=== PATIENT | male | born 1965 | race African-American/Black ===

== ENCOUNTER 2018-07-20 12:37 | Emergency (ER) | payer BC ==
[~2018-07-20] VITALS: Ht 177.8 cm; Wt 102.1 kg
[2018-07-20] MEDS ORDERED: CYCLOBENZAPRINE HCL 10 MG TAB PO ONE (13:00)
[2018-07-20] MEDS ORDERED: KETOROLAC TROMETHAMINE 60 MG/2 ML VIAL IM ONE (13:00)
[2018-07-20] MEDS ORDERED: HYDROCODONE/APAP 10MG-325MG TAB PO ONE (13:00)
[2018-07-20] MEDS ORDERED: ONDANSETRON HCL 4 MG ORAL DISINTEGRATING TAB ONE (13:04)
[2018-07-20] MEDS ORDERED: DEXAMETHASONE SOD PHOS 10 MG/1 ML VIAL INJ ONE (13:30)
[2018-07-20] MEDS ORDERED: ONDANSETRON HCL 4 MG ORAL DISINTEGRATING TAB PO ONE (13:30)
[2018-07-20 13:56] VITALS: BP 134/86
== END 2018-07-20 13:58 | disposition home or self-care (01) ==
LOC: ER 12:37
DX: M54.6 Pain in thoracic spine (principal); M54.5 Low back pain; S23.3XXA Sprain of ligaments of thoracic spine, initial encounter; S33.5XXA Sprain of ligaments of lumbar spine, initial encounter; X50.0XXA Overexertion from strenuous movement or load, initial encounter; Y92.008 Other place in unspecified non-institutional (private) residence as the place of occurrence of the external cause; E03.9 Hypothyroidism, unspecified
CPT/HCPCS: 99283; J1885

== ENCOUNTER → 2018-08-13 | Outpatient (CLI) | payer BC ==
[~2018-08-13] MED LIST: LEVOTHYROXINE PO; NAPROXEN250 MG PO; NORCO 7.5-3251 EACH PO; PRAVASTATIN SOD10 MG PO; VITAMIN D32000 UNI1 PO
--- NOTE | 2018-08-13 15:29 | Diagnostic Imaging Report ---
History: Low back pain, left leg numbness Comparison studies: None Technique: Sagittal, coronal and axial T2 , sagittal T1 and IR, axial spin density oblique. Intravenous contrast: None Findings: Number of lumbar vertebral bodies:5 Alignment: Normal lordosis.No scoliosis. Soft tissues: No T2 hyperintense inflammatory changes. Paraspinal muscles: No signal abnormalities. No atrophy. Lower thoracic cord:Normal in signal and morphology. The tip of the conus is at L1. Cauda equina: No masses. No arachnoiditis. Vertebrae: Normal in height and signal intensity. No compression fractures, infection or neoplasm. Degenerative changes: L1-L2: No abnormalities. L2-L3: No abnormalities. L3-L4: No abnormalities. L4-L5: Disc degeneration with loss of T2 signal. Diffuse disc bulge with superimposed small central disc protrusion and mild facet hypertrophy and ligamentum flavum thickening results in mild canal stenosis and mild right foraminal narrowing. L5-S1: Disc degeneration with loss of T2 signal. Diffuse disc bulge with superimposed central and left subarticular inferiorly migrated disc extrusion and mild facet hypertrophy results in mild canal stenosis and obliteration of the left subarticular recesses without significant foraminal narrowing. Additional findings: None IMPRESSION: Left central and subarticular inferiorly migrated disc extrusion at L5-S1 obliterates the left subarticular recesses with impingement on the descending S1 nerve root. Other degenerative changes as described above. Signed by: DR Martín Garcia M.D. on 08/13/2018 3:25 PM
== END ==
LOC: MRI 09:01
PROVIDERS: ATTEND Specialist
DX: S39.012A Strain of muscle, fascia and tendon of lower back, initial encounter (principal)
CPT/HCPCS: 72148

== ENCOUNTER 2018-09-09 05:50 | Observation (INO) | payer BC ==
--- NOTE | 2018-09-05 15:23 | Diagnostic Imaging Report ---
EXAM: XR CHEST 2 VIEWS DATE: 09/05/2018 2:49 PM INDICATION: Preoperative. Low back pain. COMPARISON: None FINDINGS: Lines and Tubes: None Heart and Mediastinum: No acute cardiomediastinal findings. Lungs and Pleura: No significant pleural effusion, pneumothorax, or focal consolidation. Bones and Soft Tissues: No acute findings. IMPRESSION: 1. No acute cardiopulmonary findings. Signed by: Dr. Shahbaz Espinal MD on 09/05/2018 3:20 PM
[2018-09-08 10:28] LABS: BASOPHILS % 0.6 % (0.0-1.0); EOSINOPHILS # (AUTO) 0.1 (0.0-0.4); EOSINOPHILS % 1.5 % (0.0-6.0); HEMATOCRIT 43.7 % (38.2-49.6); HEMOGLOBIN 14.1 g/dL (14.0-18.0); LYMPHOCYTES # (AUTO) 1.7 (1.0-3.2); LYMPHOCYTES % 50.9 % (18.0-39.1); MEAN CORPUSCULAR HEMOGLOBIN 30.5 pg (28-32); MEAN CORPUSCULAR HGB CONC 32.3 g/dL (31-35); MEAN CORPUSCULAR VOLUME 94.6 fL (81-99); MONOCYTES # (AUTO) 0.4 (0.2-0.8); MONOCYTES % 12.7 % (4.4-11.3); NEUTROPHILS # (AUTO) 1.1 (2.1-6.9); PLATELET COUNT 197 x10e3/uL (140-360); RED BLOOD COUNT 4.62 x10e6/uL (4.3-5.7); RED CELL DISTRIBUTION WIDTH 12.6 % (11.7-14.4)
[2018-09-08 10:41] LABS: INR 0.95; PROTHROMBIN TIME 13.6 seconds (11.9-14.5)
[2018-09-08 10:42] LABS: PARTIAL THROMBOPLASTIN TIME 26.6 seconds (23.8-35.5)
[2018-09-08 10:49] LABS: ANION GAP 15.1 mmol/L (8-16); BLOOD UREA NITROGEN 16 mg/dL (7-26); BUN/CREATININE RATIO 13 (6-25); CALCIUM 9.9 mg/dL (8.4-10.2); CARBON DIOXIDE 22 mmol/L (22-29); CHLORIDE 106 mmol/L (98-107); CREATININE, SERUM 1.23 mg/dL (0.72-1.25); EST GLOMERULAR FILTRATION RATE > 60 ML/MIN (60-); GLUCOSE 94 mg/dL (74-118); POTASSIUM 4.1 mmol/L (3.5-5.1); SODIUM 139 mmol/L (136-145)
[~2018-09-09] VITALS: Ht 180.3 cm; Wt 103.6 kg
--- OUTSIDE RECORDS SUMMARY | 2018-09-09 05:52 | XMS REPORT | Clinical Summary ---
Author Author [facility] Organization [facility] Address Unknown Phone Unavailable Care Team Providers Care Fitness Sales Associate Name Role Phone Alicia Melissa MD PCP Allergies Comments Active Allergy Reactions Severity Noted Date Codeine Nausea Only 07/10/2011 Medications End Date Status Medication Sig Dispensed Refills Start Date Active levothyroxine (SYNTHROID, Take 175 mcg 0 LEVOXYL) 175 mcg tablet by mouth. 6 07/16/2019 Active naproxen (NAPROSYN) 500 Take 1 tablet 60 tablet 0 MG tablet (500 mg 8 total) by mouth 2 (two) times a day with meals. 07/16/2018 Discontinued naproxen (NAPROSYN) 500 Take 1 tablet 60 tablet 0 201 MG tablet (500 mg 7 total) by mouth 2 (two) times a day with meals. Status Hospital, Clinic, or Ordered Dose Route Frequency Start End Date Other Facility Date Administered Medication Active sodium hyaluronate 30 mg IAtc once 01/21/20 (viscosup) (ORTHOVISC) 18 injection 30 mgIndications: Primary osteoarthritis of right knee Active Problems Problem Noted Date Strain of lumbar region 07/16/2018 Acute bilateral low back pain without sciatica 07/16/2018 Plantar fasciitis 05/10/2017 Pain of right heel 05/10/2017 Chronic pain of right knee 05/10/2017 Chronic right shoulder pain 05/10/2017 DJD (degenerative joint disease), ankle and foot 05/10/2017 Primary osteoarthritis of right knee 05/10/2017 Calcific tendonitis of right shoulder 05/10/2017 Encounters Care Team Description Date Type Specialty Ac Dangelo MD Primary osteoarthritis of right knee (Primary Dx) 08/01/2018 Office Visit Orthopedic Surgery Ac Dangelo MD Primary osteoarthritis of right knee (Primary Dx) 07/25/2018 Office Visit Orthopedic Surgery Ac Dangelo MD Primary osteoarthritis of right knee (Primary Dx) 07/17/2018 Office Visit Orthopedic Surgery Colby Singh MD Acute bilateral low back pain without sciatica (Primary Dx); Strain of lumbar region, initial encounter 07/16/2018 Office Visit Orthopedic Surgery Zhao Gutierrez MD Leukopenia, unspecified type (Primary Dx); Other neutropenia 02/19/2018 Lab Lab Ac Dangelo MD Primary osteoarthritis of right knee (Primary Dx) 01/08/2018 Office Visit Orthopedic Surgery Ac Dangelo MD Primary osteoarthritis of right knee (Primary Dx) 01/01/2018 Office Visit Orthopedic Surgery Ac Dangelo MD Primary osteoarthritis of right knee (Primary Dx) 12/25/2017 Office Visit Orthopedic Surgery Zhao Gutierrez MD Leukopenia, unspecified type (Primary Dx); Other neutropenia 09/20/2017 Lab Lab after 09/08/2017 Family History Medical History Relation Name Comments Cancer Father Relation Name Status Comments Father Mother Alive Social History Date Tobacco Use Types Packs/Day Years Used Never Smoker Smokeless Tobacco: Never Used Alcohol Use Drinks/Week oz/Week Comments Yes 1 Cans of 0.6 beer Sex Assigned at Date Recorded Not on file Industry Job Start Date Occupation Not on file Not on file Not on file Travel End Travel History Travel Start No recent travel history available. Last Filed Vital Signs Time Taken Vital Sign Reading - Blood Pressure - - Pulse - - Temperature - - Respiratory Rate - - Oxygen Saturation - - Inhaled Oxygen - Concentration 07/17/2018 10:44 AM CDT Weight 102 kg (225 lb) 07/17/2018 10:44 AM CDT Height 177.8 cm (5' 10") 07/17/2018 10:44 AM CDT Body Mass Index 32.28 Plan of Treatment Health Maintenance Due Date Last Done Comments MMR VACCINES (1 of - 1965 Standard series) VARICELLA VACCINES (1 of 1977 2 - 2-dose adolescent series) COLON CANCER SCREENING 2014 SHINGRIX VACCINE (1 of 2) 2014 INFLUENZA VACCINE 05/21/2018 HEPATITIS B VACCINES Aged Out No longer eligible based on patient's age to complete this topic IPV VACCINES Aged Out No longer eligible based on patient's age to complete this topic MENINGOCOCCAL VACCINE Aged Out No longer eligible based on patient's age to complete this topic Procedures Comments Procedure Name Priority Date/Time Associated Diagnosis ME ARTHROCENTESIS Routine 08/01/2018 Primary osteoarthritis of ASPIR&/INJ MAJOR JT/BURSA 3:50 PM CDT right knee W/O US ME ARTHROCENTESIS Routine 07/25/2018 Primary osteoarthritis of ASPIR&/INJ MAJOR JT/BURSA 2:10 PM CDT right knee W/O US XR KNEE 4+ VW RIGHT Routine 07/17/2018 Primary osteoarthritis of 10:39 AM CDT right knee ME ARTHROCENTESIS Routine 07/17/2018 Primary osteoarthritis of ASPIR&/INJ MAJOR JT/BURSA 10:30 AM CDT right knee W/O US HIGH RESOLUTION Routine 02/19/2018 Leukopenia, unspecified ELECTROPHORESIS PANEL 10:05 AM CDT type Other neutropenia IGAM Routine 02/19/2018 Leukopenia, unspecified 10:05 AM CDT type Other neutropenia HC COMPLETE BLD COUNT Routine 02/19/2018 Leukopenia, unspecified W/AUTO DIFF 10:05 AM CDT type Other neutropenia ME ARTHROCENTESIS Routine 01/08/2018 Primary osteoarthritis of ASPIR&/INJ MAJOR JT/BURSA 10:50 AM CDT right knee W/O US ME ARTHROCENTESIS Routine 01/01/2018 Primary osteoarthritis of ASPIR&/INJ MAJOR JT/BURSA 10:40 AM CDT right knee W/O US ME ARTHROCENTESIS Routine 12/25/2017 Primary osteoarthritis of ASPIR&/INJ MAJOR JT/BURSA 10:40 AM WEB USER EXPERIENCE STRATEGIST right knee W/O US ADENOVIRUS BY PCR Routine 09/20/2017 Leukopenia, unspecified 3:25 PM WEB USER EXPERIENCE STRATEGIST type Other neutropenia HC COMPLETE BLD COUNT Routine 09/20/2017 Leukopenia, unspecified W/AUTO DIFF 3:25 PM WEB USER EXPERIENCE STRATEGIST type Other neutropenia SUNNY-ROSALES VIRUS Routine 09/20/2017 Leukopenia, unspecified ANTIBODY TEST 3:25 PM WEB USER EXPERIENCE STRATEGIST type Other neutropenia CYTOMEGALOVIRUS AB, IGM Routine 09/20/2017 Leukopenia, unspecified 3:25 PM WEB USER EXPERIENCE STRATEGIST type Other neutropenia CYTOMEGALOVIRUS AB, IGG Routine 09/20/2017 Leukopenia, unspecified 3:25 PM WEB USER EXPERIENCE STRATEGIST type Other neutropenia after 09/08/2017 Results * Large Joint Arthrocentesis (08/01/2018 3:50 PM CDT) Narrative Performed At Ac Dangelo MD 08/04/20188:34 AM Large Joint Arthrocentesis Consent given by: patient Supporting Documentation Indications: pain Procedure Details Ultrasound guided: no Location: knee - R knee Right side: Needle size: 22 G Approach: anterolateral Right knee medications administered: 3 mL lidocaine 10 mg/mL (1 %); 2 mL sodium hyaluronate (viscosup) 30 mg/2 mL Patient tolerance: patient tolerated the procedure well with no immediate complications * Large Joint Arthrocentesis (07/25/2018 2:10 PM CDT) Narrative Performed At Ac Dangelo MD 07/30/20181:08 PM Large Joint Arthrocentesis Consent given by: patient Supporting Documentation Indications: pain Procedure Details Ultrasound guided: no Location: knee - R knee Right side: Needle size (right): 25G. Approach: anterolateral Right knee medications administered: 2 mL lidocaine 10 mg/mL (1 %); 2 mL sodium hyaluronate (viscosup) 30 mg/2 mL (3mg betamethasone acet, sod phos 3mg/ml) Patient tolerance: patient tolerated the procedure well with no immediate complications * XR Knee 4+ Vw Right (07/17/2018 10:39 AM CDT) Narrative Performed At [facility] Advanced degenerative changes bilaterally with medial joint narrowing and tsey-hy-mvia apposition with varus on the right. Performing Organization Address City/State/Zipcode Phone Number [facility] [address] [place] [address] * Large Joint Arthrocentesis (07/17/2018 10:30 AM CDT) Narrative Performed At Ac Dangelo MD 07/17/2018 12:04 PM Large Joint Arthrocentesis Consent given by: patient Supporting Documentation Indications: pain Procedure Details Ultrasound guided: no Location: knee - R knee Right side: Needle size: 22 G Approach: anterolateral Right knee medications administered: 3 mL lidocaine 10 mg/mL (1 %); 2 mL sodium hyaluronate (viscosup) 30 mg/2 mL Patient tolerance: patient tolerated the procedure well with no immediate complications * IGAM (02/19/2018 10:05 AM CDT) IgG 1,408 700 - 1,600 mg/dL [facility] DEPARTMENT OF PATHOLOGY AND GENOMIC MEDICINE IgA 361 70 - 400 mg/dL [facility] DEPARTMENT OF PATHOLOGY AND GENOMIC MEDICINE IgM 47 33 - 255 mg/dL [facility] DEPARTMENT OF PATHOLOGY AND GENOMIC MEDICINE Specimen Plasma specimen Performing Organization Address City/State/[facility] Phone Number [facility] DEPARTMENT OF [address] [place] [phone] PATHOLOGY AND GENOMIC MEDICINE * High resolution electrophoresis panel (02/19/2018 10:05 AM CDT) Protein 7.7 6.3 - 8.3 g/dL [facility] DEPARTMENT OF Comment: PATHOLOGY AND GENOMIC MEDICINE 4.6-7.0 g/dL 1 week 4.4-7.6 g/dL 7 months-1year 5.1-7.3 g/dL 1-2 years5.6-7 .5 g/dL >3 years6.0-8 .0 g/dL 18-150 6.3-8.3 g/dL SPE albumin 5.14 4.00 - 5.30 g/dL [facility] DEPARTMENT OF PATHOLOGY AND GENOMIC MEDICINE SPE alpha 1 0.12 0.10 - 0.25 g/dL [facility] DEPARTMENT OF PATHOLOGY AND GENOMIC MEDICINE SPE alpha 2 0.57 (L) 0.58 - 0.84 g/dL [facility] DEPARTMENT OF PATHOLOGY AND GENOMIC MEDICINE SPE beta 0.81 0.50 - 1.10 g/dL [facility] DEPARTMENT OF PATHOLOGY AND GENOMIC MEDICINE SPE gamma 1.08 0.60 - 1.30 g/dL [facility] DEPARTMENT OF PATHOLOGY AND GENOMIC MEDICINE SPE extended See Comment [facility] DEPARTMENT OF interpretation Comment: PATHOLOGY AND Alpha-2 globulins are GENOMIC MEDICINE decreased most likely due to decreased haptoglobin and/or alpha-2 macroglobulin. Results are similar by both conventional and high resolution electrophoresis (HRE). SPE interpretation See CommentComment: Shannan [facility] DEPARTMENT OF Sam PhD; Kenny Villafuerte MD PhD PATHOLOGY AND GENOMIC MEDICINE High resolution SEE COMMENTComment: See [facility] DEPARTMENT OF electrophoresis electrophoresis report below. PATHOLOGY AND GENOMIC MEDICINE Specimen Serum Performing Organization Address City/State/Zipcode Phone Number [facility] DEPARTMENT OF [address] [place] [address] PATHOLOGY AND GENOMIC MEDICINE * CBC with platelet and differential (02/19/2018 10:05 AM CDT) Only the most recent of 2 results within the time period is included. WBC 3.41 (L) 4.50 - 11.00 k/uL [facility] DEPARTMENT OF PATHOLOGY AND GENOMIC MEDICINE RBC 4.65 4.40 - 6.00 m/uL [facility] DEPARTMENT OF PATHOLOGY AND GENOMIC MEDICINE HGB 14.0 14.0 - 18.0 g/dL [facility] DEPARTMENT OF PATHOLOGY AND GENOMIC MEDICINE HCT 43.2 41.0 - 51.0 % [facility] DEPARTMENT OF PATHOLOGY AND GENOMIC MEDICINE MCV 92.9 82.0 - 100.0 fL [facility] DEPARTMENT OF PATHOLOGY AND GENOMIC MEDICINE MCH 30.1 27.0 - 34.0 pg [facility] DEPARTMENT OF PATHOLOGY AND GENOMIC MEDICINE MCHC 32.4 31.0 - 37.0 g/dL [facility] DEPARTMENT OF PATHOLOGY AND GENOMIC MEDICINE RDW - SD 42.8 37.0 - 55.0 fL [facility] DEPARTMENT OF PATHOLOGY AND GENOMIC MEDICINE MPV 10.2 8.8 - 13.2 fL [facility] DEPARTMENT OF PATHOLOGY AND GENOMIC MEDICINE Platelet count 194 150 - 400 k/uL [facility] DEPARTMENT OF PATHOLOGY AND GENOMIC MEDICINE Nucleated RBC 0.00 /100 WBC [facility] DEPARTMENT OF PATHOLOGY AND GENOMIC MEDICINE Neutrophils 32.6 (L) 39.0 - 69.0 % [facility] DEPARTMENT OF PATHOLOGY AND GENOMIC MEDICINE Lymphocytes 51.3 (H) 25.0 - 45.0 % [facility] DEPARTMENT OF PATHOLOGY AND GENOMIC MEDICINE Monocytes 12.9 (H) 0.0 - 10.0 % [facility] DEPARTMENT OF PATHOLOGY AND GENOMIC MEDICINE Eosinophils 2.3 0.0 - 5.0 % [facility] DEPARTMENT OF PATHOLOGY AND GENOMIC MEDICINE Basophils 0.9 0.0 - 1.0 % [facility] DEPARTMENT OF PATHOLOGY AND GENOMIC MEDICINE Immature granulocytes 0.0Comment: "Immature 0.0 - 1.0 % [facility] DEPARTMENT OF granulocytes" (promyelocytes, PATHOLOGY AND myelocytes, metamyelocytes) GENOMIC MEDICINE Specimen Blood Performing Organization Address City/State/Zipcode Phone Number [facility] DEPARTMENT OF [address] [place] [address] PATHOLOGY AND GENOMIC MEDICINE * Large Joint Arthrocentesis (01/08/2018 10:50 AM CDT) Narrative Performed At Ac Dangelo MD 01/08/2018 11:46 AM Large Joint Arthrocentesis Consent given by: patient Supporting Documentation Indications: pain Procedure Details Ultrasound guided: no Location: knee - R knee Right side: Needle size: 22 G Approach: anterolateral Right knee medications administered: 3 mL lidocaine 10 mg/mL (1 %); 2 mL sodium hyaluronate (viscosup) 30 mg/2 mL Patient tolerance: patient tolerated the procedure well with no immediate complications * Large Joint Arthrocentesis (01/01/2018 10:40 AM CDT) Narrative Performed At Ac Dangelo MD 01/02/20188:30 PM Large Joint Arthrocentesis Consent given by: patient Supporting Documentation Indications: pain Procedure Details Ultrasound guided: no Location: knee - R knee Right side: Needle size: 22 G Approach: anterolateral Right knee medications administered: 3 mL lidocaine 10 mg/mL (1 %); 2 mL sodium hyaluronate (viscosup) 30 mg/2 mL Patient tolerance: patient tolerated the procedure well with no immediate complications * Large Joint Arthrocentesis (12/25/2017 10:40 AM WEB USER EXPERIENCE STRATEGIST) Narrative Performed At Ac Dangelo MD 01/20/20184:10 PM Large Joint Arthrocentesis Consent given by: patient Supporting Documentation Indications: pain Procedure Details Ultrasound guided: no Location: knee - R knee Right side: Needle size: 22 G Approach: anterolateral Right knee medications administered: 3 mL lidocaine 10 mg/mL (1 %); 2 mL sodium hyaluronate (viscosup) 30 mg/2 mL Patient tolerance: patient tolerated the procedure well with no immediate complications * Sunny-Rosales virus antibody test (09/20/2017 3:25 PM WEB USER EXPERIENCE STRATEGIST) EBV Ab to viral capsid POSITIVE (A) Negative [facility] DEPARTMENT OF Ag, IgG PATHOLOGY AND GENOMIC MEDICINE EBV Ab to viral capsid Negative Negative [facility] DEPARTMENT OF Ag, IgM PATHOLOGY AND GENOMIC MEDICINE EBV Ab to nuclear Ag, IgG POSITIVE (A) Negative [facility] DEPARTMENT OF PATHOLOGY AND GENOMIC MEDICINE EBV Ab to early (D) Ag, Negative Negative [facility] DEPARTMENT OF IgG Comment: PATHOLOGY AND Interpretive Information: GENOMIC MEDICINE Infection StatusVCA_IgG No Previous_ Acute + Recent + Past + Reactivation + Infection StatusVCA_IgM No Previous_ Acute + Recent +/- Past - Reactivation +/- Infection Status EA No Previous_ Acute +/- Recent +/- Past - Reactivation + Infection Status EBNA No Previous_ Acute - Recent +/- Past + Reactivation + Specimen Serum Performing Organization Address City/State/Zipcode Phone Number [facility] [place] [address] PATHOLOGY AND GENOMIC MEDICINE * Adenovirus by PCR (09/20/2017 3:25 PM WEB USER EXPERIENCE STRATEGIST) Adenovirus by PCR Not-Detected Not-Detected [facility] DEPARTMENT OF PATHOLOGY AND GENOMIC MEDICINE Adenovirus by PCR See link below for PDF Lab [facility] DEPARTMENT OF ReportComment: Case Number: PATHOLOGY AND [id number] GENOMIC MEDICINE Performing Organization Address City/[facility] Phone Number [facility] [place] [address] PATHOLOGY AND GENOMIC MEDICINE * Cytomegalovirus Ab, IgM (09/20/2017 3:25 PM WEB USER EXPERIENCE STRATEGIST) Cytomegalovirus Ab, IgM NegativeComment: Negative: CMV Negative [facility] DEPARTMENT OF IgM antibodies were not PATHOLOGY AND detected. GENOMIC MEDICINE Specimen Serum Performing Organization Address City/[facility] Phone Number [facility] [place] [address] PATHOLOGY AND GENOMIC MEDICINE * Cytomegalovirus Ab, IgG (09/20/2017 3:25 PM WEB USER EXPERIENCE STRATEGIST) Cytomegalovirus Ab, IgG Positive (A) Negative [facility] DEPARTMENT OF Comment: PATHOLOGY AND Positive; IgG antibody to CMV GENOMIC MEDICINE detected which may indicate exposure to CMV infection. Specimen Serum Performing Organization Address City/[facility]ode Phone Number [facility] [place] [address] PATHOLOGY AND GENOMIC MEDICINE after 09/08/2017 Insurance Payer Benefit Subscriber ID Type Phone Address Plan / Group BCBS BCBS xxxxxxxxx PPO CHOICE PPO/[employer] PPO Advance Directives Patient has advance care planning documents on file. For more information, darlyn saldana contact: Jose Alejandro Connell [address] [place] [address]
--- OUTSIDE RECORDS SUMMARY | 2018-09-09 05:52 | XMS REPORT ---
Author Author [facility] Address Unknown Phone Unavailable Care Team Providers Care Torpedo Shooter Name Role Phone ZAYNAB MENDOZA Unavailable Unavailable CELESTINA TUBBS Unavailable Unavailable Problems This patient has no known problems. Allergies, Adverse Reactions, Alerts This patient has no known allergies or adverse reactions. Medications This patient has no known medications. Results Test Description Test Time Test Comments Text Results Atomic Results Result Comments CHEST 2 VIEWS 2018-09-05 15:19:00 [place] [address] Patient Name: ALFREDO YANCEY MR #: [id number] : 1965 Age/Sex: 53/M Req #: [id number] Adm Physician: Ordered by: ZAYNAB MENDOZA MD Report #: [id number] Location: OR Room/Bed: Procedure: [id number] DX/CHEST 2 VIEWS Exam Date: 09/05/18 Exam Time: 1505 REPORT STATUS: Signed EXAM: XR CHEST 2 VIEWS DATE: 09/05/2018 2:49 PM INDICATION: Preoperative. Low back pain. COMPARISON: None FINDINGS: Lines and Tubes: None Heart and Mediastinum: No acute cardiomediastinal findings. Lungs and Pleura: No significant pleural effusion, pneumothorax, or focal consolidation. Bones and Soft Tissues: No acute findings. IMPRESSION: 1. No acute cardiopulmonary findings. Signed by: Dr. Shahbaz Espinal MD on 09/05/2018 3:20 PM Dictated By: SHAHBAZ ESPINAL MD 1520 Transcribed By: MANUELA on 09/05/18 1520 COPY TO: ZAYNAB MENDOZA MD MRI SPINE LUMBAR WO 2018-08-13 15:20:00 [place] [address] Patient Name: ALFREDO YANCEY MR #: [id number] : 1965 Age/Sex: 52/M Req #: [id number] Adm Physician: Ordered by: CELESTINA TUBBS MD Report #: [id number] Location: MRI Room/Bed: Procedure: [id number] MRI/MRI SPINE LUMBAR WO Exam Date: Exam Time: REPORT STATUS: Signed History: Low back pain, left leg numbness Comparison studies: None Technique: Sagittal, coronal and axial T2 , sagittal T1 and IR, axial spin density oblique. Intravenous contrast: None Findings: Number of lumbar vertebral bodies:5 Alignment: Normal lordosis.No scoliosis. Soft tissues: No T2 hyperintense inflammatory changes. Paraspinal muscles: No signal abnormalities. No atrophy. Lower thoracic cord:Normal in signal and m orphology. The tip of the conus is at L1. Cauda equina: No masses. No arachnoiditis. Vertebrae: Normal in height and signal intensity. No compression fractures, infection or neoplasm. Degenerative changes: L1-L2: No abnormalities. L2-L3: No abnormalities. L3-L4: No abnormalities. L4-L5: Disc degeneration with loss of T2 signal. Diffuse disc bulge with superimposed small central disc protrusion and mild facet hypertrophy and ligamentum flavum thickening results in mild canal stenosis and mild right foraminal narrowing. L5-S1: Disc degeneration with loss of T2 signal. Diffuse disc bulge with superimposed central and left subarticular inferiorly migrated disc extrusion and mild facet hypertrophy results in mild canal stenosis and obliteration of the left subarticular recesses without significant foraminal narrowing. Additional findings: None IMPRESSION: Left central and subarticular inferiorly migrated disc extrusion at L5-S1 obliterates the left subarticular recesses with impingement on the descending S1 nerve root. Other degenerative changes as described above. Signed by: DR Martín Garcia M.D. on 08/13/2018 3:25 PM Dictated By: MARTÍN ALMENDAREZ MD 1525 Transcribed By: MANUELA on 08/13/18 1525 COPY TO: CELESTINA TUBBS MD
[2018-09-09] MEDS ORDERED: CEFAZOLIN SOD 2 GM/D5W 50ML 50 ML IV ONE (06:17)
[2018-09-09] MEDS ORDERED: NAPROXEN250 MG PO (06:36)
[2018-09-09] MEDS ORDERED: LEVOTHYROXINE PO (06:36)
[2018-09-09] MEDS ORDERED: VITAMIN D32000 UNI1 PO (06:36)
[2018-09-09] MEDS ORDERED: PRAVASTATIN SOD10 MG PO (06:36)
[2018-09-09] MEDS ORDERED: BUPIVACAINE 0.5%/EPI 30 ML SDV INJ ONE (06:57)
[2018-09-09] MEDS ORDERED: BACITRACIN 50,000 UNIT VIAL ONE (06:58)
[2018-09-09] MEDS ORDERED: THROMBIN FOR SOLN 5,000 UNIT VIAL ONE (06:58)
[2018-09-09] MEDS ORDERED: GELATIN SPONGE 12-7MM ONE (06:58)
[2018-09-09] MEDS ORDERED: FENTANYL CITRATE/PF 100MCG/2 ML INJ ONE ×2 (09:13→19:11)
[2018-09-09] MEDS ORDERED: HYDROMORPHONE 2MG/ML 2 MG/ML ML IV PRN (09:15)
[2018-09-09] MEDS ORDERED: MORPHINE SULFATE INJ 4 MG/ML INJ IM PRN (09:15)
[2018-09-09] MEDS ORDERED: CARISOPRODOL 350 MG TAB PO PRN (09:15)
[2018-09-09] MEDS ORDERED: MAGNESIUM/ALUMINUM/SIMETHICONE 30 ML UDC PO PRN (09:15)
[2018-09-09] MEDS ORDERED: ACETAMINOPHEN 325 MG TAB PO PRN (09:15)
[2018-09-09] MEDS ORDERED: PROMETHAZINE HCL (IM) 25 MG/ML VIAL IM PRN (09:15)
[2018-09-09] MEDS ORDERED: ZOLPIDEM TARTRATE 5 MG TAB PO PRN (09:15)
--- OUTSIDE RECORDS SUMMARY | 2018-09-09 09:19 | XMS REPORT | Clinical Summary ---
Author Author Jose Alejandro Jain Organization [place] [facility] Address Unknown Phone Unavailable Care Team Providers Care Offender Employment Specialist Name Role Phone Alicia Melissa MD PCP [...] Comments Procedure Name Priority Date/Time Associated Diagnosis [place] ARTHROCENTESIS Routine 08/01/2018 Primary osteoarthritis of ASPIR&/INJ MAJOR JT/BURSA 3:50 PM CDT right knee W/O US [place] ARTHROCENTESIS Routine 07/25/2018 Primary osteoarthritis of ASPIR&/INJ MAJOR JT/BURSA 2:10 PM CDT right knee W/O US XR KNEE 4+ VW RIGHT Routine 07/17/2018 Primary osteoarthritis of 10:39 AM CDT right knee [place] ARTHROCENTESIS Routine 07/17/2018 Primary osteoarthritis of ASPIR&/INJ MAJOR JT/BURSA 10:30 AM CDT right knee W/O US HIGH RESOLUTION Routine 02/19/2018 Leukopenia, unspecified ELECTROPHORESIS PANEL 10:05 AM CDT type Other neutropenia IGAM Routine 02/19/2018 Leukopenia, unspecified 10:05 AM CDT type Other neutropenia HC COMPLETE BLD COUNT Routine 02/19/2018 Leukopenia, unspecified W/AUTO DIFF 10:05 AM CDT type Other neutropenia [place] ARTHROCENTESIS Routine 01/08/2018 Primary osteoarthritis of ASPIR&/INJ MAJOR JT/BURSA 10:50 AM CDT right knee W/O US [place] ARTHROCENTESIS Routine 01/01/2018 Primary osteoarthritis of ASPIR&/INJ MAJOR JT/BURSA 10:40 AM CDT right knee W/O US [place] ARTHROCENTESIS Routine 12/25/2017 Primary osteoarthritis of ASPIR&/INJ MAJOR JT/BURSA 10:40 AM [employer] right knee W/O US ADENOVIRUS BY PCR Routine 09/20/2017 Leukopenia, unspecified 3:25 PM [employer] type Other neutropenia HC COMPLETE BLD COUNT Routine 09/20/2017 Leukopenia, unspecified W/AUTO DIFF 3:25 PM [employer] type Other neutropenia SUNNY-ROSALES VIRUS Routine 09/20/2017 Leukopenia, unspecified ANTIBODY TEST 3:25 PM [employer] type Other neutropenia CYTOMEGALOVIRUS AB, IGM Routine 09/20/2017 Leukopenia, unspecified 3:25 PM [employer] type Other neutropenia CYTOMEGALOVIRUS AB, IGG Routine 09/20/2017 Leukopenia, unspecified 3:25 PM [employer] type Other neutropenia after 09/08/2017 Results * [...] changes bilaterally with medial joint narrowing and yvdt-gl-[id number] apposition with varus on the right. Performing Organization Address City/State/Zipcode Phone Number [facility] [address] [place] [address] * Large Joint Arthrocentesis (07/17/2018 10:30 AM [...] CDT) IgG 1,408 700 - 1,600 mg/dL [facility] DEPARTMENT OF PATHOLOGY AND GENOMIC MEDICINE IgA 361 70 - 400 mg/dL [facility] DEPARTMENT OF PATHOLOGY AND GENOMIC MEDICINE IgM 47 33 - 255 mg/dL [facility] DEPARTMENT OF PATHOLOGY AND GENOMIC MEDICINE Specimen Plasma specimen Performing Organization Address City/State/[facility] Phone Number [facility] DEPARTMENT OF [address] [place] [phone] PATHOLOGY AND GENOMIC MEDICINE * High resolution electrophoresis panel (02/19/2018 10:05 AM CDT) Protein 7.7 6.3 - 8.3 g/dL [facility] DEPARTMENT OF Comment: PATHOLOGY AND GENOMIC MEDICINE 4.6-7.0 g/dL 1 week 4.4-7.6 g/dL 7 months-1year 5.1-7.3 g/dL 1-2 years5.6-7 .5 g/dL >3 years6.0-8 .0 g/dL 18-150 6.3-8.3 g/dL SPE albumin 5.14 4.00 - 5.30 g/dL [facility] DEPARTMENT OF PATHOLOGY AND GENOMIC MEDICINE SPE alpha 1 0.12 0.10 - 0.25 g/dL [facility] DEPARTMENT OF PATHOLOGY AND GENOMIC MEDICINE SPE alpha 2 0.57 (L) 0.58 - 0.84 g/dL [facility] DEPARTMENT OF PATHOLOGY AND GENOMIC MEDICINE SPE beta 0.81 0.50 - 1.10 g/dL [facility] DEPARTMENT OF PATHOLOGY AND GENOMIC MEDICINE SPE gamma 1.08 0.60 - 1.30 g/dL [facility] DEPARTMENT OF PATHOLOGY AND GENOMIC MEDICINE SPE extended See Comment [facility] DEPARTMENT OF interpretation Comment: PATHOLOGY AND Alpha-2 globulins are GENOMIC MEDICINE decreased most likely due to decreased haptoglobin and/or alpha-2 macroglobulin. Results are similar by both conventional and high resolution electrophoresis (HRE). SPE interpretation See CommentComment: Shannan [facility] DEPARTMENT OF Sam PhD; Kenny Villafuerte MD PhD PATHOLOGY AND GENOMIC MEDICINE High resolution SEE COMMENTComment: See [facility] DEPARTMENT OF electrophoresis electrophoresis report below. PATHOLOGY AND GENOMIC MEDICINE Specimen Serum Performing Organization Address City/State/Zipcode Phone Number [facility] DEPARTMENT OF [address] [place] [address] PATHOLOGY AND GENOMIC MEDICINE * CBC with platelet and differential (02/19/2018 10:05 AM CDT) Only the most recent of 2 results within the time period is included. WBC 3.41 (L) 4.50 - 11.00 k/uL [facility] DEPARTMENT OF PATHOLOGY AND GENOMIC MEDICINE RBC 4.65 4.40 - 6.00 m/uL [facility] DEPARTMENT OF PATHOLOGY AND GENOMIC MEDICINE HGB 14.0 14.0 - 18.0 g/dL [facility] DEPARTMENT OF PATHOLOGY AND GENOMIC MEDICINE HCT 43.2 41.0 - 51.0 % [facility] DEPARTMENT OF PATHOLOGY AND GENOMIC MEDICINE MCV 92.9 82.0 - 100.0 fL [facility] DEPARTMENT OF PATHOLOGY AND GENOMIC MEDICINE MCH 30.1 27.0 - 34.0 pg [facility] DEPARTMENT OF PATHOLOGY AND GENOMIC MEDICINE MCHC 32.4 31.0 - 37.0 g/dL [facility] DEPARTMENT OF PATHOLOGY AND GENOMIC MEDICINE RDW - SD 42.8 37.0 - 55.0 fL [facility] DEPARTMENT OF PATHOLOGY AND GENOMIC MEDICINE MPV 10.2 8.8 - 13.2 fL [facility] DEPARTMENT OF PATHOLOGY AND GENOMIC MEDICINE Platelet count 194 150 - 400 k/uL [facility] DEPARTMENT OF PATHOLOGY AND GENOMIC MEDICINE Nucleated RBC 0.00 /100 WBC [facility] DEPARTMENT OF PATHOLOGY AND GENOMIC MEDICINE Neutrophils 32.6 (L) 39.0 - 69.0 % [facility] DEPARTMENT OF PATHOLOGY AND GENOMIC MEDICINE Lymphocytes 51.3 (H) 25.0 - 45.0 % [facility] DEPARTMENT OF PATHOLOGY AND GENOMIC MEDICINE Monocytes 12.9 (H) 0.0 - 10.0 % [facility] DEPARTMENT OF PATHOLOGY AND GENOMIC MEDICINE Eosinophils 2.3 0.0 - 5.0 % [facility] DEPARTMENT OF PATHOLOGY AND GENOMIC MEDICINE Basophils 0.9 0.0 - 1.0 % [facility] DEPARTMENT OF PATHOLOGY AND GENOMIC MEDICINE Immature granulocytes 0.0Comment: "Immature 0.0 - 1.0 % [facility] DEPARTMENT OF granulocytes" (promyelocytes, PATHOLOGY AND myelocytes, metamyelocytes) GENOMIC MEDICINE Specimen Blood Performing Organization Address City/State/Zipcode Phone Number [facility] DEPARTMENT OF [address] [place] [address] PATHOLOGY AND GENOMIC MEDICINE * Large Joint [...] * Large Joint Arthrocentesis (12/25/2017 10:40 AM [employer]) Narrative Performed At [facility] Dangelo MD 01/20/20184:10 [...] Sunny-Rosales virus antibody test (09/20/2017 3:25 PM [employer]) EBV Ab to viral capsid POSITIVE (A) Negative [facility] DEPARTMENT OF Ag, IgG PATHOLOGY AND GENOMIC MEDICINE EBV Ab to viral capsid Negative Negative [facility] DEPARTMENT OF Ag, IgM PATHOLOGY AND GENOMIC MEDICINE EBV Ab to nuclear Ag, IgG POSITIVE (A) Negative [facility] DEPARTMENT OF PATHOLOGY AND GENOMIC MEDICINE EBV Ab to early (D) Ag, Negative Negative [facility] DEPARTMENT OF IgG Comment: PATHOLOGY AND Interpretive [...] Serum Performing Organization Address City/State/Zipcode Phone Number [place] [address] PATHOLOGY AND GENOMIC MEDICINE * Adenovirus by PCR (09/20/2017 3:25 PM [employer]) Adenovirus by PCR Not-Detected Not-Detected [facility] DEPARTMENT OF PATHOLOGY AND GENOMIC MEDICINE Adenovirus by PCR See link below for PDF Lab [facility] DEPARTMENT OF ReportComment: Case Number: PATHOLOGY AND [id number] GENOMIC MEDICINE Performing Organization Address City/[facility] Phone Number [facility] [place] [address] PATHOLOGY AND GENOMIC MEDICINE * Cytomegalovirus Ab, IgM (09/20/2017 3:25 PM [employer]) Cytomegalovirus Ab, IgM NegativeComment: Negative: CMV Negative [facility] DEPARTMENT OF IgM antibodies were not PATHOLOGY AND detected. GENOMIC MEDICINE Specimen Serum Performing Organization Address City/[facility] Phone Number [facility] [place] [address] PATHOLOGY AND GENOMIC MEDICINE * Cytomegalovirus Ab, IgG (09/20/2017 3:25 PM [employer]) Cytomegalovirus Ab, IgG Positive (A) Negative [facility] DEPARTMENT OF Comment: PATHOLOGY AND Positive; IgG antibody to CMV GENOMIC MEDICINE detected which may indicate exposure to CMV infection. Specimen Serum Performing Organization Address City/[facility] Phone Number [place] [address] PATHOLOGY AND GENOMIC MEDICINE after 09/08/2017 Insurance Payer Benefit Subscriber ID Type Phone Address Plan / Group BCBS BCBS xxxxxxxxx PPO CHOICE PPO/BILL [employer] PPO Advance Directives Patient has advance care planning documents on file. For more information, darlyn saldana contact: Jose Alejandro Connell [address] [place] [address]
--- NOTE | 2018-09-09 10:11 | Operative Report ---
DATE OF PROCEDURE: September 09, 2018 PREOPERATIVE DIAGNOSIS: Left L5-S1 disk herniation with radiculopathy, M51.17. POSTOPERATIVE DIAGNOSIS: Left L5-S1 disk herniation with radiculopathy, M51.17. PROCEDURE: Left L5-S1 laminotomy, medial facetectomy and microsurgical diskectomy, [address]. ANESTHESIA: General. INDICATIONS: Patient is a 53-year-old man who presents with severe left S1 radiculopathy due to a left L5-S1 disk herniation. He was taken to the operating room for microsurgical diskectomy. PROCEDURE: After the induction of general anesthesia, the patient was placed on the operating table in prone position over a Gil frame. Lumbar region was prepped and draped in sterile fashion. A preoperative x-ray was obtained. A small midline incision was created. Lumbar fascia was opened to the left of midline, and subperiosteal dissection was carried out to expose the left side of the L5-S1 laminae and the medial aspect of the facet joint. A 2nd x-ray confirmed correct localization. The operating microscope was brought in. A high-speed drill equipped with a jong bur was used to drill the inferior aspect of the lamina of L5 and the medial rim of the L5-S1 facet joint and superior rim of the lamina of S1. The ligamentum flavum was resected. The dural sac and the S1 nerve root were exposed. The epidural veins lateral to the nerve root were bipolar coagulated and divided with microscissors. The herniated disk material immediately came into view markedly elevating and compressing the S1 nerve root. This was mobilized with a micro-ball probe and grasped with a micro-pituitary rongeur and removed as a large fragment of disk. This maneuver was repeated several times, and several additional fragments of disk were retrieved and removed until the nerve root was completely decompressed. The nerve root was then retracted medially. The opening into the annulus of the disk was enlarged with a #11 blade, and the loose contents of the L5-S1 disk were conservatively evacuated with a micro-pituitary rongeur. Meticulous hemostasis was secured. The dura was covered with a piece of fat obtained from the subcutaneous space. The wound was closed in multiple layers with #0 and 2-0 Vicryl sutures. The skin was closed with 3-0 Monocryl sutures in a subcuticular fashion. Steri-strips and dressing were applied. The patient was awakened, extubated and taken to the postanesthesia care unit in stable condition. No intraoperative complications were encountered. Estimated blood loss was 10 mL. Job#: [id number]
[2018-09-09 10:14] VITALS: BP 120/59
[2018-09-09] MEDS: OXYCODONE/ACETAMINOPHEN 5-325 1 EACH TABLET PO PRN ×2 (10:50→21:10)
[2018-09-09 11:10] VITALS: BP 120/59
[2018-09-09 11:51] VITALS: BP 140/63
[2018-09-09] MEDS: LACTATED RINGER'S 1,000 ML IV SCH ×2 (11:54→18:20)
[2018-09-09] MEDS: ONDANSETRON HCL INJ 2 MG/ML VIAL IV PRN ×2 (12:32→17:23)
[2018-09-09] MEDS ORDERED: CEFAZOLIN SOD 1 GM/D5W 50ML 50 ML IV SCH (14:00)
[2018-09-09] MEDS: CEFAZOLIN SOD 1 GM VIAL IV SCH ×2 (14:06→21:12)
[2018-09-09 15:33] VITALS: BP 106/55
[2018-09-09] MEDS ORDERED: NAPROXEN 250 MG TAB PO SCH (17:00)
[2018-09-09] MEDS ORDERED: MIDAZOLAM HCL 2 MG/2 ML VIAL ONE (19:11)
[2018-09-09] MEDS ORDERED: ACETAMINOPHEN 1000 MG/100 ML IV ONE (19:14)
[2018-09-09] MEDS ORDERED: GLYCOPYRROLATE INJ 1MG/ 5 ML SYR ONE (19:14)
[2018-09-09] MEDS ORDERED: LIDOCAINE HCL 2% LOCAL INJ 5 ML SDV VIAL INJ ONE (19:14)
[2018-09-09] MEDS ORDERED: NEOSTIGMINE 5 MG/5ML SYR ONE (19:14)
[2018-09-09] MEDS ORDERED: ROCURONIUM BROMIDE 10 MG/ML 5ML VIAL ONE (19:14)
[2018-09-09] MEDS ORDERED: PROPOFOL IV EMULSION 10 MG/ML 20 ML VIAL ONE (19:14)
[2018-09-09] MEDS ORDERED: SEVOFLURANE INHAL SOLN 250 ML PEN BTL ONE (19:14)
[2018-09-09] MEDS ORDERED: ONDANSETRON HCL INJ 2 MG/ML VIAL ONE (19:14)
[2018-09-09] MEDS ORDERED: DEXAMETHASONE SOD PHOS INJ 4 MG/ML VIAL ONE (19:14)
[2018-09-09 20:00] VITALS: BP 115/55
[2018-09-10] VITALS: BP 91/52
[2018-09-10 01:00] VITALS: BP 103/55
[2018-09-10] MEDS: LACTATED RINGER'S 1,000 ML IV SCH (01:52)
[2018-09-10 04:00] VITALS: BP 105/53
[2018-09-10] MEDS ORDERED: LEVOTHYROXINE SODIUM 75 MCG TAB PO SCH (06:00)
[2018-09-10] MEDS: CEFAZOLIN SOD 1 GM VIAL IV SCH (06:10)
[2018-09-10 08:00] VITALS: BP 101/55
[2018-09-10 08:05] VITALS: BP 101/55
[2018-09-10] MEDS: OXYCODONE/ACETAMINOPHEN 5-325 1 EACH TABLET PO PRN (08:13)
[2018-09-10] MEDS ORDERED: NORCO 7.5-3251 EACH PO (09:27)
== END 2018-09-10 09:50 | disposition home or self-care (01) ==
LOC: OR 05:50 → PACU V 09:13 → IMCU 10:05
PROVIDERS: ADMIT Neurological Surgery; ATTEND Neurological Surgery
DX: M51.17 Intervertebral disc disorders with radiculopathy, lumbosacral region (principal); E03.9 Hypothyroidism, unspecified; K57.90 Diverticulosis of intestine, part unspecified, without perforation or abscess without bleeding; Z01.810 Encounter for preprocedural cardiovascular examination; Z01.812 Encounter for preprocedural laboratory examination; Z01.811 Encounter for preprocedural respiratory examination; Z88.5 Allergy status to narcotic agent
CPT/HCPCS: 36415; 63047; 71046; 72020; 80048; 85025; 85610; 85730; 86850; 86900; 88304; 93005; G0378 ×2; J0131; J0690 ×3; J1100; J2001; J2250; J2405; J2704; J3490; J7120

== ENCOUNTER 2018-09-23 18:31 | Emergency (ER) | payer BC ==
[~2018-09-23] VITALS: Ht 180.3 cm; Wt 103.4 kg
--- OUTSIDE RECORDS SUMMARY | 2018-09-23 18:35 | XMS REPORT | Clinical Summary ---
Author Author Jose Alejandro [facility] Organization [facility] Address Unknown Phone Unavailable Care Team Providers Care General Surgery Physician Assistant Name Role Phone Alicia Melissa MD PCP [...] (Primary Dx) 12/25/2017 Office Visit Orthopedic Surgery after 09/22/2017 Family History Medical History Relation Name Comments [...] Health Maintenance Due Date Last Done Comments COLON CANCER SCREENING 2014 SHINGRIX VACCINE (1 [...] Comments Procedure Name Priority Date/Time Associated Diagnosis [place] ARTHROCENTESIS Routine 08/01/2018 Primary osteoarthritis of ASPIR&/INJ MAJOR JT/BURSA 3:50 PM CDT right knee W/O US DC ARTHROCENTESIS Routine 07/25/2018 Primary osteoarthritis of ASPIR&/INJ MAJOR JT/BURSA 2:10 PM CDT right knee W/O US XR KNEE 4+ VW RIGHT Routine 07/17/2018 Primary osteoarthritis of 10:39 AM CDT right knee DC ARTHROCENTESIS Routine 07/17/2018 Primary osteoarthritis of ASPIR&/INJ MAJOR JT/BURSA 10:30 AM CDT right knee W/O US HIGH RESOLUTION Routine 02/19/2018 Leukopenia, unspecified ELECTROPHORESIS PANEL 10:05 AM CDT type Other neutropenia IGAM Routine 02/19/2018 Leukopenia, unspecified 10:05 AM CDT type Other neutropenia HC COMPLETE BLD COUNT Routine 02/19/2018 Leukopenia, unspecified W/AUTO DIFF 10:05 AM CDT type Other neutropenia DC ARTHROCENTESIS Routine 01/08/2018 Primary osteoarthritis of ASPIR&/INJ MAJOR JT/BURSA 10:50 AM CDT right knee W/O US DC ARTHROCENTESIS Routine 01/01/2018 Primary osteoarthritis of ASPIR&/INJ MAJOR JT/BURSA 10:40 AM CDT right knee W/O US DC ARTHROCENTESIS Routine 12/25/2017 Primary osteoarthritis of ASPIR&/INJ MAJOR JT/BURSA 10:40 AM FOOD AND NUTRITION SERVICES ASSISTANT right knee W/O US after 09/22/2017 Results * Large Joint Arthrocentesis (08/01/2018 3:50 [...] (07/17/2018 10:39 AM CDT) Narrative Performed At [facility] Advanced degenerative changes bilaterally with medial joint narrowing and [id number]-mc-mwxd apposition with varus on the right. Performing Organization Address [facility] Phone Number [facility] [address] [place] [address] * Large Joint Arthrocentesis (07/17/2018 10:30 AM [...] CDT) IgG 1,408 700 - 1,600 mg/dL [facility] DEPARTMENT OF PATHOLOGY AND GENOMIC MEDICINE IgA 361 70 - 400 mg/dL [facility] DEPARTMENT OF PATHOLOGY AND GENOMIC MEDICINE IgM 47 33 - 255 mg/dL [facility] DEPARTMENT OF PATHOLOGY AND GENOMIC MEDICINE Specimen Plasma specimen Performing Organization Address City/[facility] Phone Number [facility] DEPARTMENT OF [address] [place] [address] PATHOLOGY AND GENOMIC MEDICINE * High resolution electrophoresis panel (02/19/2018 10:05 AM CDT) Protein 7.7 6.3 - 8.3 g/dL [facility] DEPARTMENT OF Comment: PATHOLOGY AND GENOMIC MEDICINE 4.6-7.0 g/dL 1 week 4.4-7.6 g/dL 7 months-1year 5.1-7.3 g/dL 1-2 years5.6-7 .5 g/dL >3 years6.0-8 .0 g/dL 18-150 6.3-8.3 g/dL SPE albumin 5.14 4.00 - 5.30 g/dL [facility] DEPARTMENT OF PATHOLOGY AND GENOMIC MEDICINE SPE alpha 1 0.12 0.10 - 0.25 g/dL [facility] DEPARTMENT OF PATHOLOGY AND GENOMIC MEDICINE SPE alpha 2 0.57 (L) 0.58 - 0.84 g/dL [facility] DEPARTMENT OF PATHOLOGY AND GENOMIC MEDICINE SPE beta 0.81 0.50 - 1.10 g/dL [facility] DEPARTMENT OF PATHOLOGY AND GENOMIC MEDICINE SPE gamma 1.08 0.60 - 1.30 g/dL [facility] DEPARTMENT OF PATHOLOGY AND GENOMIC MEDICINE SPE extended See Comment [facility] DEPARTMENT OF interpretation Comment: PATHOLOGY AND Alpha-2 globulins are GENOMIC MEDICINE decreased most likely due to decreased haptoglobin and/or alpha-2 macroglobulin. Results are similar by both conventional and high resolution electrophoresis (HRE). SPE interpretation See CommentComment: Shannan [facility] DEPARTMENT OF Sam PhD; Kenny Villafuerte MD PhD PATHOLOGY AND GENOMIC MEDICINE High resolution SEE COMMENTComment: See [facility] DEPARTMENT OF electrophoresis electrophoresis report below. PATHOLOGY AND GENOMIC MEDICINE Specimen Serum Performing Organization Address City/State/Zipcode Phone Number [facility] DEPARTMENT OF [address] [place] [address] PATHOLOGY AND GENOMIC MEDICINE * CBC with platelet and differential (02/19/2018 10:05 AM CDT) WBC 3.41 (L) 4.50 - 11.00 k/uL [facility] DEPARTMENT OF PATHOLOGY AND GENOMIC MEDICINE RBC 4.65 4.40 - 6.00 m/uL [facility] DEPARTMENT OF PATHOLOGY AND GENOMIC MEDICINE HGB 14.0 14.0 - 18.0 g/dL [facility] DEPARTMENT OF PATHOLOGY AND GENOMIC MEDICINE HCT 43.2 41.0 - 51.0 % [facility] DEPARTMENT OF PATHOLOGY AND GENOMIC MEDICINE MCV 92.9 82.0 - 100.0 fL [facility] DEPARTMENT OF PATHOLOGY AND GENOMIC MEDICINE MCH 30.1 27.0 - 34.0 pg [facility] DEPARTMENT OF PATHOLOGY AND GENOMIC MEDICINE MCHC 32.4 31.0 - 37.0 g/dL [facility] DEPARTMENT OF PATHOLOGY AND GENOMIC MEDICINE RDW - SD 42.8 37.0 - 55.0 fL [facility] DEPARTMENT OF PATHOLOGY AND GENOMIC MEDICINE MPV 10.2 8.8 - 13.2 fL [facility] DEPARTMENT OF PATHOLOGY AND GENOMIC MEDICINE Platelet count 194 150 - 400 k/uL [facility] DEPARTMENT OF PATHOLOGY AND GENOMIC MEDICINE Nucleated RBC 0.00 /100 WBC [facility] DEPARTMENT OF PATHOLOGY AND GENOMIC MEDICINE Neutrophils 32.6 (L) 39.0 - 69.0 % [facility] DEPARTMENT OF PATHOLOGY AND GENOMIC MEDICINE Lymphocytes 51.3 (H) 25.0 - 45.0 % [facility] DEPARTMENT OF PATHOLOGY AND GENOMIC MEDICINE Monocytes 12.9 (H) 0.0 - 10.0 % [facility] DEPARTMENT OF PATHOLOGY AND GENOMIC MEDICINE Eosinophils 2.3 0.0 - 5.0 % [facility] DEPARTMENT OF PATHOLOGY AND GENOMIC MEDICINE Basophils 0.9 0.0 - 1.0 % [facility] DEPARTMENT OF PATHOLOGY AND GENOMIC MEDICINE Immature granulocytes 0.0Comment: "Immature 0.0 - 1.0 % [facility] DEPARTMENT OF granulocytes" (promyelocytes, PATHOLOGY AND myelocytes, metamyelocytes) GENOMIC MEDICINE Specimen Blood Performing Organization Address City/State/Zipcode Phone Number [facility] DEPARTMENT OF [address] [place] [address] PATHOLOGY AND GENOMIC MEDICINE * Large Joint [...] * Large Joint Arthrocentesis (12/25/2017 10:40 AM FOOD AND NUTRITION SERVICES ASSISTANT) Narrative Performed At [facility] Dangelo MD 01/20/20184:10 [...] the procedure well with no immediate complications after 09/22/2017 Insurance Payer Benefit Subscriber ID Type Phone Address Plan / Group BCBS BCBS xxxxxxxxx PPO CHOICE PPO/BILL [employer] PPO Advance Directives Patient has advance care planning documents on file. For more information, darlyn saldana contact: Jose Alejandro Connell [address] [place] [address]
[2018-09-23] MEDS ORDERED: ONDANSETRON HCL 4 MG ORAL DISINTEGRATING TAB ONE (19:05)
[2018-09-23] MEDS ORDERED: ONDANSETRON HCL 4 MG ORAL DISINTEGRATING TAB PO ONE (19:05)
[2018-09-23] MEDS ORDERED: METHYLPREDNISOLONE SOD SUCC 125 MG/2ML VIAL IM ONE (23:30)
== END 2018-09-24 00:09 | disposition home or self-care (01) ==
LOC: ER 18:31
DX: M54.42 Lumbago with sciatica, left side (principal); G89.29 Other chronic pain; E03.9 Hypothyroidism, unspecified; E78.5 Hyperlipidemia, unspecified
CPT/HCPCS: 99283; J2930; Q0162